=== PATIENT | male | born 1980 | race Caucasian/White ===

== ENCOUNTER 2021-05-13 20:41 | Inpatient (IN) | payer OTHER ==
[~2021-05-13] VITALS: Ht 177.8 cm; Wt 110.0 kg
[2021-05-13] MEDS ORDERED: ACETAMINOPHEN 325 MG TABLET. PO PRN (22:45)
[2021-05-13] MEDS ORDERED: HEPARIN for IV BOLUS 10,000 UNIT/10 ML VIAL. IV PRN ×2 (22:45)
[2021-05-13] MEDS ORDERED: ONDANSETRON PF 4 MG/2 ML VIAL. IVP PRN (22:45)
[2021-05-13] MEDS ORDERED: ZOLPIDEM 5 MG TABLET. PO PRN (22:45)
[2021-05-13] MEDS ORDERED: CALCIUM CARBONATE 500 MG TAB.CHEW PO PRN (22:45)
[2021-05-13] MEDS ORDERED: ELECTROLYTE (NON-ICU) PROTOCOL. MC PRN (22:45)
[2021-05-13] MEDS ORDERED: oxyCODONE/APAP 5/325 1 TAB TABLET PO PRN (22:45)
--- NOTE | 2021-05-13 22:48 | PDOC1 ---
History and Physical Date of Service: DOS: DATE: 05/13/21 TIME: 22:48 Chief Complaint: Chief Complain: Chest pain History of Present Illness: HPI: Patient is a 40-year-old male prisoner presented with severe emergency room after being found in his [facility] cell unresponsive. 2 rounds of CPR and 2 doses of Narcan required until patient regained consciousness. He arrived to the hospital alert and oriented at that time. At that point he was denying any drug use. He was complaining of midsternal chest pain that was reproducible with palpation. Oxygen sat on arrival to emergency room was around 80% up to mid 90s with nonrebreather and nasal cannula. CT scan performed showed a pulmonary embolism and infiltrates consistent with COVID-pneumonia. He was then transferred here for further care. Past Medical/Surgical History: PMH/PSH: Incarcerated Allergies: Allergies: Coded Allergies: No Known Drug Allergies (Unverified , 05/13/21) Family History: Family History: Hypertension Social History: Social History: Denies current drug or tobacco use. Does somehow drink alcohol in [facility] Current Medications: Current Medications Current Medications Heparin Sodium/ Dextrose 250 ml @ 0 mls/hr CONT PRN IV PER PROTOCOL; Start 05/13/21 at 22:45; Status UNV Heparin Sodium (Porcine) (Heparin Sodium) 50 unit PRN Q6HRS PRN IV FOR UFH LEVEL LESS THAN 0.2; Start 05/13/21 at 22:45; Status UNV Heparin Sodium (Porcine) (Heparin Sodium) 15 unit PRN Q6HRS PRN IV FOR UFH LEVEL 0.2 - 0.29; Start 05/13/21 at 22:45; Status UNV ROS: Review of Systems Review of System Unless noted in HPI 14 point review of systems was negative Physical Exam: Physcial Exam: GEN: No apparent distress. Alert and oriented HEENT: Normal cephalic, atraumatic, external auditory canals are patent EYES: Extraocular muscles are intact, pupil are equally round and reactive to light and accommodation MUSCULOSKELETAL: Well developed , well nourished, good range of motion ENDOCRINE: No thyromegaly was palpated LYMPHATICS: No cervical chain or axillary nodes were noted HEMATOPOIETIC: No bruising NECK: Supple, no JVD, no thyromegaly was noted LUNGS: Clear to auscultation in all lung cohn without rhonchi or wheezing HEART: RRR, S!, S2 present. Peripheral pulses intact, no obvious murmurs noted ABDOMEN: Soft, nontender. Positive bowel sounds, no organomegaly, normal bowel sounds EXTREMITIES: Without clubbing, cyanosis, or edema. Pedal pulses intact. Negative Homans sign NEUROLOGIC: Normal speech and tone. A&O x 3, moves all extremities, no obvious focal deficits PSYCHIATRIC: Normal affect, normal mood. Stable SKIN: No ulcerations or rashes, good skin turgor, no jaundice VASCULAR: Good capillary refill, neurovascular bundle appears to be intact Assessment/Plan Assessment/Plan Pulmonary embolus, COVID-19 pneumonia. -Continue heparin drip for now. We will look into transitioning to long-term oral anticoagulation in coming days -Treat COVID. Remdesivir as patient on 5 L. Steroids antibiotics -Monitor for any sort of withdrawal signs -Regular diet Justifications for Admission Other Justification ALTHEA OCONNOR MD May 13, 2021 22:48
[2021-05-13 23:00] VITALS: BP 118/75
[2021-05-13 23:15] LABS: BASO # 0.1 x10^3/uL (0.0-0.2); BASO % 0 % (0-3); EOS % 0 % (0-3); HEMATOCRIT 46.6 % (39.0-53.0); LYMPH # 1.2 x10^3/uL (1.0-4.8); LYMPH % 6 % (24-48); MEAN CORPUSCULAR HEMOGLOBIN 30 pg (25-35); MEAN CORPUSCULAR HGB CONC 34 g/dL (31-37); MEAN CORPUSCULAR VOLUME 86 fL (79-100); MONO # 0.8 x10^3/uL (0.0-1.1); MONO % 4 % (0-9); NEUT # 16.7 x10^3/uL (1.8-7.7); NEUT % 89 % (31-73); PLATELET COUNT 231 x10^3/uL (140-400); RED BLOOD COUNT 5.41 x10^6/uL (4.30-5.70); RED CELL DISTRIBUTION WIDTH 12.7 % (11.5-14.5); WHITE BLOOD COUNT 18.8 x10^3/uL (4.0-11.0)
[2021-05-13 23:38] LABS: PROTHROMBIN TIME PATIENT 14.6 SEC (11.7-14.0)
[2021-05-13] MEDS: oxyCODONE IR 5 MG TABLET PO PRN (23:38)
[2021-05-13 23:51] LABS: PARTIAL THROMBOPLASTIN TIME > 150 SEC (24-38); UNFRACTIONATED HEPARIN TESTING > 1.10 IU/mL (0.30-0.70)
[2021-05-14 00:10] LABS: % BANDS 8 % (0-9); % LYMPHS 9 % (24-48); % MONOS 4 % (0-10); % SEGS 79 % (35-66); PLT ESTIMATE ADEQUATE (ADEQUATE); TOXIC GRANULATION SLIGHT
[2021-05-14] MEDS: HEPARIN 25,000UTS/250ML PREMIX 250 ML IV PRN ×2 (00:57→11:46)
[2021-05-14 01:23] LABS: ALBUMIN 3.4 g/dL (3.4-5.0); ALBUMIN/GLOBULIN RATIO 0.9 (1.0-1.7); CREATININE 1.2 mg/dL (0.7-1.3); GFR 67.8; TOTAL BILIRUBIN 0.5 mg/dL (0.2-1.0); TOTAL PROTEIN 7.1 g/dL (6.4-8.2)
[2021-05-14] MEDS: oxyCODONE/APAP 5/325 1 TAB TABLET PO PRN ×2 (01:29→20:12)
[2021-05-14 03:00] VITALS: BP 107/65
[2021-05-14 07:00] VITALS: BP 121/70
[2021-05-14] MEDS: SENNOSIDES/DOCUSATE 8.6/50MG TABLET. PO SCH ×2 (10:12→20:12)
[2021-05-14] MEDS: DEXAMETHASONE SOD PHOS 4 MG/ML VIAL IVP SCH (10:14)
[2021-05-14 11:00] VITALS: BP 135/72
--- NOTE | 2021-05-14 11:00 | RAD ---
EXAM: Chest, single view. HISTORY: Shortness of breath. COMPARISON: None. FINDINGS: A frontal view of the chest is obtained. There is central predominant increased interstitia l opacity. There is cardiomegaly and there are prominent chiki. There is an incidental azygos lobe. No pleural effusion or pneumothorax is seen. IMPRESSION: 1. Suspected central predominant bilateral interstitial infiltrate. 2. Cardiomegaly and enlarged chiki likely due to prominent central pulmonary vessels or lymphadenopath y. Electronically signed by: Leda Lawrence MD (05/14/2021 10:57 AM) [id number]
[2021-05-14 15:00] VITALS: BP 116/69
[2021-05-14] MEDS ORDERED: REMDESIVIR LOAD in IV NORMAL SALINE 250ML TV IV ONE (15:00)
[2021-05-14] MEDS: DOXYCYCLINE HYCLATE 100 MG TABLET PO SCH ×2 (15:45→20:12)
[2021-05-14] MEDS: cefTRIAXone IV Push 1 GM VIAL. IVP SCH (15:48)
[2021-05-14 19:00] VITALS: BP 131/73
[2021-05-14] MEDS: LACTOBACILLUS RHAMNOSUS GG 1 CAPSULE. PO SCH (20:11)
[2021-05-14 23:00] VITALS: BP 106/59
[2021-05-15 01:36] LABS: HEMATOCRIT 41.2 % (39.0-53.0); HEMOGLOBIN 13.9 g/dL (13.0-17.5); RED BLOOD COUNT 4.76 x10^6/uL (4.30-5.70); RED CELL DISTRIBUTION WIDTH 12.5 % (11.5-14.5); WHITE BLOOD COUNT 13.1 x10^3/uL (4.0-11.0)
[2021-05-15 03:19] VITALS: BP 99/59
[2021-05-15 07:00] VITALS: BP 122/71
[2021-05-15] MEDS: SENNOSIDES/DOCUSATE 8.6/50MG TABLET. PO SCH ×2 (08:24→21:25)
[2021-05-15] MEDS: DEXAMETHASONE SOD PHOS 4 MG/ML VIAL IVP SCH (08:24)
[2021-05-15] MEDS: LACTOBACILLUS RHAMNOSUS GG 1 CAPSULE. PO SCH ×2 (08:24→21:25)
[2021-05-15] MEDS: DOXYCYCLINE HYCLATE 100 MG TABLET PO SCH ×2 (08:24→21:25)
[2021-05-15] MEDS: HEPARIN 25,000UTS/250ML PREMIX 250 ML IV PRN (08:51)
--- NOTE | 2021-05-15 09:22 | PDOC ---
[facility] PROGRESS NOTE Date of Service DOS: May 14 late entry Chief Complaint Chief Complaint Assessment/Plan Pulmonary embolus, COVID-19 pneumonia. -Continue heparin drip for now. We will look into transitioning to long-term oral anticoagulation in coming days -Treat COVID. Remdesivir as patient on 5 L. Steroids antibiotics -Monitor for any sort of withdrawal signs -Regular diet History of Present Illness History of Present Illness 05/14 Patient seen and examined at bedside. He was resting in bed conversant was still having some chest pain. This pain was reproducible on palpation. Having some chest pain with deep breaths again. Continue COVID treatment. Will look into transitioning to oral anticoagulation. Plan of care discussed with bedside RN Vitals/I&O Vitals/I&O: Vital Signs Date Time Temp Pulse Resp B/P (MAP) Pulse Ox O2 Delivery O2 Flow Rate FiO2 05/15/21 07:00 98.2 75 18 122/71 (88) 100 Nasal Cannula 5.0 98.2 I & O 05/14/21 05/14/21 05/15/21 15:00 23:00 07:00 Intake Total 240 ml Output Total 500 ml 600 ml Balance -500 ml -600 ml 240 ml Physical Exam General: Alert, Oriented X3, Cooperative Heart: Regular rate, Normal S1, Normal S2 Lungs: Clear Abdomen: Normal bowel sounds, Soft, No tenderness Extremities: No edema, Normal pulses Skin: No significant lesion Labs Labs: Laboratory Tests Test 05/14/21 13:20 05/14/21 19:00 05/15/21 01:20 05/15/21 08:10 Heparin Anti-Xa Act, Unfractionated 0.61 IU/mL (0.30-0.70) 0.50 IU/mL (0.30-0.70) 0.53 IU/mL (0.30-0.70) 0.46 IU/mL (0.30-0.70) White Blood Count 13.1 x10^3/uL (4.0-11.0) Red Blood Count 4.76 x10^6/uL (4.30-5.70) Hemoglobin 13.9 g/dL (13.0-17.5) Hematocrit 41.2 % (39.0-53.0) Mean Corpuscular Volume 87 fL (79-100) Mean Corpuscular Hemoglobin 29 pg (25-35) Mean Corpuscular Hemoglobin Concent 34 g/dL (31-37) Red Cell Distribution Width 12.5 % (11.5-14.5) Platelet Count 219 x10^3/uL (140-400) Comment Review of Relevant I have reviewed the following items corina (where applicable) has been applied. Medications: Current Medications Medications (Trade) Dose Ordered Sig/Otis Route PRN Reason Start Time Stop Time Status Last Admin Dose Admin Remdesivir 200 mg/ Sodium Chloride 210 ml @ 210 mls/hr 1X ONCE IV 05/14/21 15:00 05/14/21 15:59 DC 05/14/21 15:45 Ceftriaxone Sodium (Rocephin) 1 gm Q24H IVP 05/14/21 14:00 05/20/21 14:01 05/14/21 15:48 Doxycycline Hyclate (Vibra-Tab) 100 mg BID PO 05/14/21 14:00 05/20/21 21:01 05/15/21 08:24 Lactobacillus Rhamnosus (Culturelle) 1 cap BID PO 05/14/21 21:00 05/15/21 08:24 Guaifenesin (Mucinex) 600 mg BID PO 05/14/21 18:00 05/15/21 08:24 Justifications for Admission Other Justification ALTHEA OCONNOR MD May 15, 2021 09:22
[2021-05-15 11:00] VITALS: BP 108/56
[2021-05-15] MEDS: ANTI-COAG MONITOR BY PHARMACY. MC PRN (11:00)
--- NOTE | 2021-05-15 14:06 | PDOC ---
[facility] PROGRESS NOTE Date of Service DOS: DATE: 05/15/21 TIME: 14:06 Chief Complaint Chief Complaint Assessment/Plan Pulmonary embolus, COVID-19 pneumonia. -Continue heparin drip for now. We will look into transitioning to long-term oral anticoagulation in coming days -Treat COVID. Remdesivir as patient on 5 L. Steroids antibiotics -Monitor for any sort of withdrawal signs -Regular diet History of Present Illness History of Present Illness 05/15 Evaluated examined bedside. Resting in bed conversant chest pain somewhat improved. We will transition over to Eliquis today stop heparin drip. Continue COVID treatment. 05/14 Patient seen and examined at bedside. He was resting in bed conversant was still having some chest pain. This pain was reproducible on palpation. Having some chest pain with deep breaths again. Continue COVID treatment. Will look into transitioning to oral anticoagulation. Plan of care discussed with bedside RN Vitals/I&O Vitals/I&O: Vital Signs Date Time Temp Pulse Resp B/P (MAP) Pulse Ox O2 Delivery O2 Flow Rate FiO2 05/15/21 11:00 98.0 76 18 108/56 (73) 95 Nasal Cannula 5.0 98.0 I & O 05/14/21 05/14/21 05/15/21 15:00 23:00 07:00 Intake Total 240 ml Output Total 500 ml 600 ml Balance -500 ml -600 ml 240 ml Physical Exam General: Alert, Oriented X3, Cooperative Heart: Regular rate, Normal S1, Normal S2 Lungs: Clear Abdomen: Normal bowel sounds, Soft, No tenderness Extremities: No edema, Normal pulses Skin: No significant lesion Labs Labs: Laboratory Tests Test 05/14/21 19:00 05/15/21 01:20 05/15/21 08:10 Heparin Anti-Xa Act, Unfractionated 0.50 IU/mL (0.30-0.70) 0.53 IU/mL (0.30-0.70) 0.46 IU/mL (0.30-0.70) White Blood Count 13.1 x10^3/uL (4.0-11.0) Red Blood Count 4.76 x10^6/uL (4.30-5.70) Hemoglobin 13.9 g/dL (13.0-17.5) Hematocrit 41.2 % (39.0-53.0) Mean Corpuscular Volume 87 fL (79-100) Mean Corpuscular Hemoglobin 29 pg (25-35) Mean Corpuscular Hemoglobin Concent 34 g/dL (31-37) Red Cell Distribution Width 12.5 % (11.5-14.5) Platelet Count 219 x10^3/uL (140-400) Comment Review of Relevant I have reviewed the following items corina (where applicable) has been applied. Medications: Current Medications Medications (Trade) Dose Ordered Sig/Otis Route PRN Reason Start Time Stop Time Status Last Admin Dose Admin Remdesivir 200 mg/ Sodium Chloride 210 ml @ 210 mls/hr 1X ONCE IV 05/14/21 15:00 05/14/21 15:59 DC 05/14/21 15:45 Lactobacillus Rhamnosus (Culturelle) 1 cap BID PO 05/14/21 21:00 05/15/21 08:24 Guaifenesin (Mucinex) 600 mg BID PO 05/14/21 18:00 05/15/21 08:24 Info (Anti-Coagulation Monitoring By Pharmacy) 1 each PRN DAILY PRN MC PER PROTOCOL 05/15/21 11:00 05/15/21 11:00 Justifications for Admission Other Justification ALTHEA OCONNOR MD May 15, 2021 14:06
[2021-05-15] MEDS: cefTRIAXone IV Push 1 GM VIAL. IVP SCH (14:40)
[2021-05-15] MEDS: APIXABAN 5 MG TABLET. PO SCH ×2 (14:41→21:25)
[2021-05-15] MEDS: oxyCODONE/APAP 5/325 1 TAB TABLET PO PRN (14:42)
[2021-05-15 15:00] VITALS: BP 117/64
[2021-05-15] MEDS: REMDESIVIR 100mg in NORMAL SALINE 250ML X 4 DAYS IV SCH (15:17)
[2021-05-15 19:00] VITALS: BP 111/62
[2021-05-15 23:37] VITALS: BP 120/74
[2021-05-16 03:27] VITALS: BP 115/67
[2021-05-16 07:00] VITALS: BP 126/59
[2021-05-16] MEDS: SENNOSIDES/DOCUSATE 8.6/50MG TABLET. PO SCH ×2 (08:32→20:36)
[2021-05-16] MEDS: APIXABAN 5 MG TABLET. PO SCH ×2 (08:33→20:37)
[2021-05-16] MEDS: DEXAMETHASONE SOD PHOS 4 MG/ML VIAL IVP SCH (08:33)
[2021-05-16] MEDS: LACTOBACILLUS RHAMNOSUS GG 1 CAPSULE. PO SCH ×2 (08:33→20:37)
[2021-05-16] MEDS: DOXYCYCLINE HYCLATE 100 MG TABLET PO SCH ×2 (08:33→20:37)
[2021-05-16 11:00] VITALS: BP 115/70
--- NOTE | 2021-05-16 11:12 | PDOC ---
[facility] PROGRESS NOTE Date of Service DOS: DATE: 05/16/21 TIME: 11:10 Chief Complaint Chief Complaint Pulmonary embolus, COVID-19 pneumonia. History of Present Illness History of Present Illness 05/16 Patient sen and examined Discussed with RN Chart Reviewed Patient reports feeling better today, but still affirms cough and chest congestion When discussing the events prior to hospitalization, patient affirms drinking long term "hooch" (alcohol made in long term by inmates) prior to needing CPR. Denies other substance use. 05/15 Evaluated examined bedside. Resting in bed conversant chest pain somewhat improved. We will transition over to Eliquis today stop heparin drip. Continue COVID treatment. 05/14 Patient seen and examined at bedside. He was resting in bed conversant was still having some chest pain. This pain was reproducible on palpation. Having some chest pain with deep breaths again. Continue COVID treatment. Will look into transitioning to oral anticoagulation. Plan of care discussed with bedside RN Vitals/I&O Vitals/I&O: Vital Signs Date Time Temp Pulse Resp B/P (MAP) Pulse Ox O2 Delivery O2 Flow Rate FiO2 05/16/21 08:30 Nasal Cannula 5.0 05/16/21 07:00 98.3 68 18 126/59 (81) 96 98.3 I & O 05/15/21 05/15/21 05/16/21 15:00 23:00 07:00 Intake Total 740 ml Output Total 600 ml 1350 ml Balance -600 ml -610 ml Physical Exam General: Alert, Oriented X3, Cooperative, No acute distress Heart: Regular rate, Normal S1, Normal S2 Lungs: Clear Abdomen: Normal bowel sounds, Soft, No tenderness Extremities: No edema, Normal pulses Skin: No significant lesion Labs Labs: Laboratory Tests Test 05/15/21 14:45 Heparin Anti-Xa Act, Unfractionated 0.27 IU/mL (0.30-0.70) Review of Systems Review of Systems: Patient denies nausea, vomiting, lower extremity swelling, changes in vision, changes in hearing. Affirms cough and chest congestion Assessment and Plan Assessmemt and Plan ASSESSMENT COVID-19 pneumonia. Pulmonary embolus PLAN -start multivitamin with minerals -Continue apixaban -Continue Remdesivir (initiated 05/15/21) as patient currently on 5 L oxygen. -Continue current Steroids and antibiotics -DVT prophylaxis -Encourage PO intake -Monitor for any sort of withdrawal signs -Regular diet Comment Review of Relevant I have reviewed the following items corina (where applicable) has been applied. Medications: Current Medications Medications (Trade) Dose Ordered Sig/Otis Route PRN Reason Start Time Stop Time Status Last Admin Dose Admin Remdesivir 100 mg/ Sodium Chloride 230 ml @ 460 mls/hr Q24H IV 05/15/21 15:00 05/18/21 15:29 05/15/21 15:17 Apixaban (Eliquis) 10 mg BID PO 05/15/21 14:15 05/21/21 21:01 05/16/21 08:33 Justifications for Admission Other Justification SLIME GONZALES III DO May 16, 2021 11:12
[2021-05-16] MEDS: cefTRIAXone IV Push 1 GM VIAL. IVP SCH (14:01)
[2021-05-16] MEDS: MULTIVITAMIN with MINERAL TABLET. PO SCH (14:02)
[2021-05-16] MEDS: REMDESIVIR 100mg in NORMAL SALINE 250ML X 4 DAYS IV SCH (14:02)
[2021-05-16 15:00] VITALS: BP 135/75
[2021-05-16 19:00] VITALS: BP 132/78
[2021-05-16] MEDS: oxyCODONE/APAP 5/325 1 TAB TABLET PO PRN (20:37)
[2021-05-16 23:00] VITALS: BP 116/69
[2021-05-17 03:30] VITALS: BP 104/58
[2021-05-17 07:00] VITALS: BP 113/71
[2021-05-17] MEDS: MULTIVITAMIN with MINERAL TABLET. PO SCH (08:45)
[2021-05-17] MEDS: SENNOSIDES/DOCUSATE 8.6/50MG TABLET. PO SCH ×2 (08:45→19:35)
[2021-05-17] MEDS: DOXYCYCLINE HYCLATE 100 MG TABLET PO SCH ×2 (08:45→19:35)
[2021-05-17] MEDS: APIXABAN 5 MG TABLET. PO SCH ×2 (08:45→19:35)
[2021-05-17] MEDS: LACTOBACILLUS RHAMNOSUS GG 1 CAPSULE. PO SCH ×2 (08:45→19:35)
[2021-05-17] MEDS: DEXAMETHASONE SOD PHOS 4 MG/ML VIAL IVP SCH (08:46)
[2021-05-17 11:00] VITALS: BP 117/67
[2021-05-17 12:15] LABS: BILIRUBIN,URINE NEGATIVE (NEG); CLARITY,URINE CLOUDY; NITRITE,URINE NEGATIVE (NEG); PROTEIN,URINE 100 mg/dL (NEG-TRACE); UROBILINOGEN,URINE 0.2 mg/dL (0.2 mg/dL)
[2021-05-17 12:23] LABS: COLOR,URINE STRAW
[2021-05-17 12:24] LABS: BACTERIA,URINE 0 /HPF (0-FEW); RBC,URINE >40 /HPF (0-2); WBC,URINE 0 /HPF (0-4)
[2021-05-17] MEDS: cefTRIAXone IV Push 1 GM VIAL. IVP SCH (14:39)
[2021-05-17] MEDS: REMDESIVIR 100mg in NORMAL SALINE 250ML X 4 DAYS IV SCH (14:40)
--- NOTE | 2021-05-17 14:43 | PDOC ---
[facility] PROGRESS NOTE Date of Service DOS: DATE: 05/17/21 TIME: 14:42 Chief Complaint Chief Complaint Pulmonary embolus, COVID-19 pneumonia. History of Present Illness History of Present Illness 05/17 Patient eval and examined at bedside. Reports ongoing chest pain but improving. Continue eliquis. Continue covid treatment. Plan discussed wt bedside RN. 05/16 Patient sen and examined Discussed with RN Chart Reviewed Patient reports feeling better today, but still affirms cough and chest congestion When discussing the events prior to hospitalization, patient affirms drinking custodial "hooch" (alcohol made in custodial by inmates) prior to needing CPR. Denies other substance use. 05/15 Evaluated examined bedside. Resting in bed conversant chest pain somewhat improved. We will transition over to Eliquis today stop heparin drip. Continue COVID treatment. 05/14 Patient seen and examined at bedside. He was resting in bed conversant was still having some chest pain. This pain was reproducible on palpation. Having some chest pain with deep breaths again. Continue COVID treatment. Will look into transitioning to oral anticoagulation. Plan of care discussed with bedside RN Vitals/I&O Vitals/I&O: Vital Signs Date Time Temp Pulse Resp B/P (MAP) Pulse Ox O2 Delivery O2 Flow Rate FiO2 05/17/21 11:00 98.2 69 20 117/67 (84) 96 Nasal Cannula 5.0 98.2 I & O 05/16/21 05/16/21 05/17/21 15:00 23:00 07:00 Intake Total 230 ml 640 ml Output Total 400 ml Balance 230 ml -400 ml 640 ml Physical Exam General: Alert, Oriented X3, Cooperative, No acute distress Heart: Regular rate, Normal S1, Normal S2 Lungs: Clear Abdomen: Normal bowel sounds, Soft, No tenderness Extremities: No edema, Normal pulses Skin: No significant lesion Labs Labs: Laboratory Tests Test 05/17/21 11:45 Urine Collection Type Unknown Urine Color Straw Urine Clarity Cloudy Urine pH 7.0 (<5.0-8.0) Urine Specific [place] 1.020 (1.000-1.030) Urine Protein 100 mg/dL (NEG-TRACE) Urine Glucose (UA) Negative mg/dL (NEG) Urine Ketones (Stick) Negative mg/dL (NEG) Urine Blood Large (NEG) Urine Nitrite Negative (NEG) Urine Bilirubin Negative (NEG) Urine Urobilinogen Dipstick 0.2 mg/dL (0.2 mg/dL) Urine Leukocyte Esterase Negative (NEG) Urine RBC >40 /HPF (0-2) Urine WBC 0 /HPF (0-4) Urine Bacteria 0 /HPF (0-FEW) Comment Review of Relevant I have reviewed the following items corina (where applicable) has been applied. Justifications for Admission Other Justification ALTHEA OCONNOR MD May 17, 2021 14:43
[2021-05-17 15:00] VITALS: BP 130/73
[2021-05-17] MEDS: ANTI-COAG MONITOR BY PHARMACY. MC PRN (17:09)
[2021-05-17 19:29] VITALS: BP 126/74
[2021-05-17] MEDS: oxyCODONE/APAP 5/325 1 TAB TABLET PO PRN (19:35)
[2021-05-17 22:41] VITALS: BP 146/81
[2021-05-18 03:08] VITALS: BP 142/65
[2021-05-18 07:00] VITALS: BP 126/71
[2021-05-18] MEDS: DEXAMETHASONE SOD PHOS 4 MG/ML VIAL IVP SCH (08:49)
[2021-05-18] MEDS: DOXYCYCLINE HYCLATE 100 MG TABLET PO SCH ×2 (08:49→20:42)
[2021-05-18] MEDS: SENNOSIDES/DOCUSATE 8.6/50MG TABLET. PO SCH ×2 (08:49→20:42)
[2021-05-18] MEDS: LACTOBACILLUS RHAMNOSUS GG 1 CAPSULE. PO SCH ×2 (08:49→20:42)
[2021-05-18] MEDS: MULTIVITAMIN with MINERAL TABLET. PO SCH (08:49)
[2021-05-18] MEDS: APIXABAN 5 MG TABLET. PO SCH ×2 (08:49→20:42)
[2021-05-18] MEDS ORDERED: SODIUM CHLORIDE 0.65% NASAL SPRAY 45ML BOTTLE. NS PRN (10:45)
[2021-05-18 11:00] VITALS: BP 135/78
[2021-05-18] MEDS: cefTRIAXone IV Push 1 GM VIAL. IVP SCH (13:57)
[2021-05-18] MEDS: REMDESIVIR 100mg in NORMAL SALINE 250ML X 4 DAYS IV SCH (13:59)
[2021-05-18 15:00] VITALS: BP 137/75
[2021-05-18 19:00] VITALS: BP 149/86
[2021-05-18] MEDS: oxyCODONE/APAP 5/325 1 TAB TABLET PO PRN (20:42)
[2021-05-18 23:00] VITALS: BP 127/62
[2021-05-19 07:00] VITALS: BP 127/73
[2021-05-19] MEDS: SENNOSIDES/DOCUSATE 8.6/50MG TABLET. PO SCH ×2 (08:30→21:35)
[2021-05-19] MEDS: LACTOBACILLUS RHAMNOSUS GG 1 CAPSULE. PO SCH ×2 (08:30→21:35)
[2021-05-19] MEDS: DOXYCYCLINE HYCLATE 100 MG TABLET PO SCH ×2 (08:30→21:35)
[2021-05-19] MEDS: MULTIVITAMIN with MINERAL TABLET. PO SCH (08:30)
[2021-05-19] MEDS: DEXAMETHASONE SOD PHOS 4 MG/ML VIAL IVP SCH (08:33)
[2021-05-19] MEDS: APIXABAN 5 MG TABLET. PO SCH ×2 (08:33→21:35)
[2021-05-19] MEDS ORDERED: DEXA6TAB6 PO (09:33)
[2021-05-19] MEDS ORDERED: APIX5TAB PO (09:33)
--- NOTE | 2021-05-19 10:11 | PDOC ---
[facility] PROGRESS NOTE Date of Service DOS: Late entry May 18 Chief Complaint Chief Complaint Pulmonary embolus, COVID-19 pneumonia. History of Present Illness History of Present Illness 05/18 Evaluated examined at bedside. Status chest pain feels a lot better today. Doing well with Eliquis. Continuing COVID treatments. Still requiring 5 L nasal cannula. 05/17 Patient eval and examined at bedside. Reports ongoing chest pain but improving. Continue eliquis. Continue covid treatment. Plan discussed wtih bedside RN. 05/16 Patient sen and examined Discussed with RN Chart Reviewed Patient reports feeling better today, but still affirms cough and chest congestion When discussing the events prior to hospitalization, patient affirms drinking longterm "hooch" (alcohol made in longterm by inmates) prior to needing CPR. Denies other substance use. 05/15 Evaluated examined bedside. Resting in bed conversant chest pain somewhat improved. We will transition over to Eliquis today stop heparin drip. Continue COVID treatment. 05/14 Patient seen and examined at bedside. He was resting in bed conversant was still having some chest pain. This pain was reproducible on palpation. Having some chest pain with deep breaths again. Continue COVID treatment. Will look into transitioning to oral anticoagulation. Plan of care discussed with bedside RN Vitals/I&O Vitals/I&O: Vital Signs Date Time Temp Pulse Resp B/P (MAP) Pulse Ox O2 Delivery O2 Flow Rate FiO2 05/19/21 07:00 98.0 65 16 127/73 (91) 97 Nasal Cannula 5.0 98.0 I & O 05/18/21 05/18/21 05/19/21 15:00 23:00 07:00 Intake Total 530 ml 900 ml 400 ml Balance 530 ml 900 ml 400 ml Physical Exam General: Alert, Oriented X3, Cooperative, No acute distress Heart: Regular rate, Normal S1, Normal S2 Lungs: Clear Abdomen: Normal bowel sounds, Soft, No tenderness Extremities: No edema, Normal pulses Skin: No significant lesion Comment Review of Relevant I have reviewed the following items corina (where applicable) has been applied. Medications: Current Medications Medications (Trade) Dose Ordered Sig/Otis Route PRN Reason Start Time Stop Time Status Last Admin Dose Admin Sodium Chloride (Saline Mist Nasal) 1 michelle PRN Q1HR PRN NS NASAL CONGESTION 05/18/21 10:45 05/18/21 14:04 Justifications for Admission Other Justification OCONNOR,CHRISTOPHER MD May 19, 2021 10:11
--- NOTE | 2021-05-19 10:12 | PDOC ---
[facility] PROGRESS NOTE Date of Service DOS: DATE: 05/19/21 TIME: 10:11 Chief Complaint Chief Complaint Pulmonary embolus, COVID-19 pneumonia. History of Present Illness History of Present Illness 05/19 Patient evaluated examined at bedside. He is cleared to discharge back to his correctional facility however they cannot take oxygen there. Aggressively wean O2 throughout today. Discharge in next 24 to 48 hours still. 05/18 Evaluated examined at bedside. Status chest pain feels a lot better today. Doing well with Eliquis. Continuing COVID treatments. Still requiring 5 L nasal cannula. 05/17 Patient eval and examined at bedside. Reports ongoing chest pain but improving. Continue eliquis. Continue covid treatment. Plan discussed wtih bedside RN. 05/16 Patient sen and examined Discussed with RN Chart Reviewed Patient reports feeling better today, but still affirms cough and chest congestion When discussing the events prior to hospitalization, patient affirms drinking intermediate "hooch" (alcohol made in intermediate by inmates) prior to needing CPR. Denies other substance use. 05/15 Evaluated examined bedside. Resting in bed conversant chest pain somewhat improved. We will transition over to Eliquis today stop heparin drip. Continue COVID treatment. 05/14 Patient seen and examined at bedside. He was resting in bed conversant was still having some chest pain. This pain was reproducible on palpation. Having some chest pain with deep breaths again. Continue COVID treatment. Will look into transitioning to oral anticoagulation. Plan of care discussed with bedside RN Vitals/I&O Vitals/I&O: Vital Signs Date Time Temp Pulse Resp B/P (MAP) Pulse Ox O2 Delivery O2 Flow Rate FiO2 05/19/21 07:00 98.0 65 16 127/73 (91) 97 Nasal Cannula 5.0 98.0 I & O 05/18/21 05/18/21 05/19/21 15:00 23:00 07:00 Intake Total 530 ml 900 ml 400 ml Balance 530 ml 900 ml 400 ml Physical Exam General: Alert, Oriented X3, Cooperative, No acute distress Heart: Regular rate, Normal S1, Normal S2 Lungs: Clear Abdomen: Normal bowel sounds, Soft, No tenderness Extremities: No edema, Normal pulses Skin: No significant lesion Comment Review of Relevant I have reviewed the following items corina (where applicable) has been applied. Medications: Current Medications Medications (Trade) Dose Ordered Sig/Otis Route PRN Reason Start Time Stop Time Status Last Admin Dose Admin Sodium Chloride (Saline Mist Nasal) 1 michelle PRN Q1HR PRN NS NASAL CONGESTION 05/18/21 10:45 05/18/21 14:04 Justifications for Admission Other Justification ALTHEA OCONNOR MD May 19, 2021 10:11
[2021-05-19 11:00] VITALS: BP 139/75
[2021-05-19] MEDS: cefTRIAXone IV Push 1 GM VIAL. IVP SCH (14:43)
[2021-05-19 15:00] VITALS: BP 126/73
[2021-05-19 19:00] VITALS: BP 121/70
[2021-05-19] MEDS: oxyCODONE IR 5 MG TABLET PO PRN (21:35)
[2021-05-19 23:00] VITALS: BP 117/69
[2021-05-20 03:19] VITALS: BP 103/59
[2021-05-20 07:00] VITALS: BP 124/66
[2021-05-20] MEDS: SENNOSIDES/DOCUSATE 8.6/50MG TABLET. PO SCH ×2 (09:04→20:09)
[2021-05-20] MEDS: LACTOBACILLUS RHAMNOSUS GG 1 CAPSULE. PO SCH ×2 (09:04→21:00)
[2021-05-20] MEDS: MULTIVITAMIN with MINERAL TABLET. PO SCH (09:04)
[2021-05-20] MEDS: APIXABAN 5 MG TABLET. PO SCH ×2 (09:04→20:09)
[2021-05-20] MEDS: DOXYCYCLINE HYCLATE 100 MG TABLET PO SCH ×2 (09:05→20:08)
[2021-05-20] MEDS: DEXAMETHASONE SOD PHOS 4 MG/ML VIAL IVP SCH (09:05)
--- NOTE | 2021-05-20 10:23 | PDOC ---
[facility] PROGRESS NOTE Date of Service DOS: DATE: 05/20/21 TIME: 10:23 Chief Complaint Chief Complaint Pulmonary embolus, COVID-19 pneumonia. History of Present Illness History of Present Illness 05/20 Eval and examined at bedside. No complaints. Aggressively wean O2. Once on RA can d/c back 05/19 Patient evaluated examined at bedside. He is cleared to discharge back to his correctional facility however they cannot take oxygen there. Aggressively wean O2 throughout today. Discharge in next 24 to 48 hours still. 05/18 Evaluated examined at bedside. Status chest pain feels a lot better today. Doing well with Eliquis. Continuing COVID treatments. Still requiring 5 L nasal cannula. 05/17 Patient eval and examined at bedside. Reports ongoing chest pain but improving. Continue eliquis. Continue covid treatment. Plan discussed wtih bedside RN. 05/16 Patient sen and examined Discussed with RN Chart Reviewed Patient reports feeling better today, but still affirms cough and chest congestion When discussing the events prior to hospitalization, patient affirms drinking [facility] "hooch" (alcohol made in [facility] by inmates) prior to needing CPR. Denies other substance use. 05/15 Evaluated examined bedside. Resting in bed conversant chest pain somewhat improved. We will transition over to Eliquis today stop heparin drip. Continue COVID treatment. 05/14 Patient seen and examined at bedside. He was resting in bed conversant was still having some chest pain. This pain was reproducible on palpation. Having some chest pain with deep breaths again. Continue COVID treatment. Will look into transitioning to oral anticoagulation. Plan of care discussed with bedside RN Vitals/I&O Vitals/I&O: Vital Signs Date Time Temp Pulse Resp B/P (MAP) Pulse Ox O2 Delivery O2 Flow Rate FiO2 05/20/21 07:00 98.1 67 17 124/66 (85) 97 Nasal Cannula 5.0 98.1 I & O 05/19/21 05/19/21 05/20/21 15:00 23:00 07:00 Intake Total 300 ml Output Total 600 ml 500 ml 650 ml Balance -600 ml -200 ml -650 ml Physical Exam General: Alert, Oriented X3, Cooperative, No acute distress Heart: Regular rate, Normal S1, Normal S2 Lungs: Clear Abdomen: Normal bowel sounds, Soft, No tenderness Extremities: No edema, Normal pulses Skin: No significant lesion Comment Review of Relevant I have reviewed the following items corina (where applicable) has been applied. Justifications for Admission Other Justification ALTHEA OCONNOR MD May 20, 2021 10:23
[2021-05-20 11:00] VITALS: BP 122/69
[2021-05-20] MEDS: cefTRIAXone IV Push 1 GM VIAL. IVP SCH (14:02)
[2021-05-20 15:00] VITALS: BP 122/70
[2021-05-20 19:00] VITALS: BP 145/102
[2021-05-20] MEDS: oxyCODONE/APAP 5/325 1 TAB TABLET PO PRN (20:14)
[2021-05-20 23:00] VITALS: BP 120/71
[2021-05-21 03:00] VITALS: BP 109/61
[2021-05-21 07:00] VITALS: BP 118/72
[2021-05-21] MEDS: LACTOBACILLUS RHAMNOSUS GG 1 CAPSULE. PO SCH (08:31)
[2021-05-21] MEDS: SENNOSIDES/DOCUSATE 8.6/50MG TABLET. PO SCH (08:32)
[2021-05-21] MEDS: APIXABAN 5 MG TABLET. PO SCH (08:32)
[2021-05-21] MEDS: DEXAMETHASONE SOD PHOS 4 MG/ML VIAL IVP SCH (08:32)
[2021-05-21] MEDS: MULTIVITAMIN with MINERAL TABLET. PO SCH (08:32)
[2021-05-21 11:00] VITALS: BP 122/74
--- NOTE | 2021-05-21 12:58 | PDOC3 ---
[facility]-Discharge Summary Date of Admission: Date of Admission: May 13, 2021 Date of Discharge: Date of Discharge: May 21, 2021 Hospital Course: Hospital Course: Chief Complaint Pulmonary embolus, COVID-19 pneumonia. History of Present Illness History of Present Illness 05/21 Patient seen and examined no complaints. On room air. Discharge back to [facility] today. Greater than 30 minutes spent on this discharge. 05/20 Eval and examined at bedside. No complaints. Aggressively wean O2. Once on RA can d/c back 05/19 Patient evaluated examined at bedside. He is cleared to discharge back to his correctional facility however they cannot take oxygen there. Aggressively wean O2 throughout today. Discharge in next 24 to 48 hours still. 05/18 Evaluated examined at bedside. Status chest pain feels a lot better today. Doing well with Eliquis. Continuing COVID treatments. Still requiring 5 L nasal cannula. 05/17 Patient eval and examined at bedside. Reports ongoing chest pain but improving. Continue eliquis. Continue covid treatment. Plan discussed wtih bedside RN. 05/16 Patient sen and examined Discussed with RN Chart Reviewed Patient reports feeling better today, but still affirms cough and chest congestion When discussing the events prior to hospitalization, patient affirms drinking residential "hooch" (alcohol made in residential by inmates) prior to needing CPR. Denies other substance use. 05/15 Evaluated examined bedside. Resting in bed conversant chest pain somewhat improved. We will transition over to Eliquis today stop heparin drip. Continue COVID treatment. 05/14 Patient seen and examined at bedside. He was resting in bed conversant was still having some chest pain. This pain was reproducible on palpation. Having some chest pain with deep breaths again. Continue COVID treatment. Will look into transitioning to oral anticoagulation. Plan of care discussed with bedside RN Disposition: Disposition/Orders: D/C to Another Facility Activity: Activity: Resume previous activity Diet: Diet: Regular Medications: Home Meds Active Scripts Dexamethasone (Decadron) 6 Mg Tablet, 1 TAB PO DAILY for covid for 5 Days, #5 TAB 0 Refills Prov:ALTHEA OCONNOR MD 05/19/21 Apixaban (ELIQUIS) 5 Mg Tablet, 5 MG PO BID for pe for 90 Days, #180 TAB do not start until complete with 10mg loading dose Prov:ALTHEA OCONNOR MD 05/19/21 Apixaban (ELIQUIS) 5 Mg Tablet, 10 MG PO BID for pe for 3 Days, #12 TAB Prov:ALTHEA OCONNOR MD 05/19/21 Scheduled Apixaban (Eliquis), 10 MG PO BID Apixaban (Eliquis), 5 MG PO BID Dexamethasone (Decadron), 1 TAB PO DAILY Justicifation of Admission Dx: Justifications for Admission: Justification of Admission Dx: Yes (pe, covid) ALTHEA OCONNOR MD May 21, 2021 12:58
--- NOTE | 2021-05-21 13:13 | NUR ---
Patient discharged to [facility]. Report and medications reviewed with Dr. Glover, the facility MD. Dr. Glover notified of new discharge meds. IV was discontinued and telemetry removed. Patient escorted out with care home guards. Skin intact and belongings sent with guards.
[2021-05-22] MEDS ORDERED: APIXABAN 5 MG TABLET. PO SCH (09:00)
== END 2021-05-21 13:22 | DRG 177 ==
LOC: 5 NORTH 20:41 → EEVIPCON 20:41
PROVIDERS: ADMIT Student in an Organized Health Care Education/Training Program; ATTEND Student in an Organized Health Care Education/Training Program
PROC: XW033E5 Introduction of Remdesivir Anti-infective into Peripheral Vein, Percutaneous Approach, New Technology Group 5 (ICD-10-PCS; principal; 2021-05-18)
DX: U07.1 COVID-19 (principal); J12.82 Pneumonia due to coronavirus disease 2019; I26.99 Other pulmonary embolism without acute cor pulmonale; Z79.01 Long term (current) use of anticoagulants; Z82.49 Family history of ischemic heart disease and other diseases of the circulatory system
CPT/HCPCS: 36415; 71045; 80053; 81001; 85007; 85025; 85027; 85520; 85610; 85730; J0696; J1100; J1644; J7050; G0378; J7030